=== PATIENT | female | born 1955 | race Caucasian/White ===

== ENCOUNTER → 2020-07-31 | Outpatient (CLI) | payer OTHER | LOC: KOH-I 14:50 | DX: N18.9 Chronic kidney disease, unspecified (principal) | CPT/HCPCS: 76775 ==

== ENCOUNTER 2021-03-13 18:40 | Emergency (ER) | payer OTHER ==
[2021-03-13] MEDS ORDERED: CEPHALEXIN500 M1 PO (22:40)
== END 2021-03-13 22:48 | disposition home or self-care (01) ==
LOC: ER1 18:40
DX: S71.111A Laceration without foreign body, right thigh, initial encounter (principal); I10 Essential (primary) hypertension; Z23 Encounter for immunization; W26.8XXA Contact with other sharp object(s), not elsewhere classified, initial encounter; Y92.009 Unspecified place in unspecified non-institutional (private) residence as the place of occurrence of the external cause
CPT/HCPCS: 73562; 90471; 90715; 99283